=== PATIENT | female | born 1975 | race Caucasian/White ===

== ENCOUNTER 2019-03-28 18:29 | Emergency (ER) | payer MEDICAID, OTHER ==
[~2019-03-28] VITALS: Ht 170.2 cm; Wt 77.3 kg
[~2019-03-28 18:29] MED LIST: DIPH-423 PO; IBUP-1984 PO
[2019-03-28 19:03] LABS: BASOPHILS % (AUTO) 0.2 % (0-1); EOSINOPHILS # (AUTO) 0.1 X10'3 (0-0.9); EOSINOPHILS % (AUTO) 1.1 % (0-6); HEMATOCRIT 40.6 % (35.0-45.0); HEMOGLOBIN 13.9 g/dl (12.0-16.0); LYMPHOCYTES # (AUTO) 1.4 X10'3 (1.1-4.8); LYMPHOCYTES % (AUTO) 11.2 % (21-51); MEAN CORPUSCULAR HEMOGLOBIN 31.8 PG (27.0-31.0); MEAN CORPUSCULAR HGB CONC 34.3 g/dL (33.0-36.5); MEAN CORPUSCULAR VOLUME 92.7 FL (78-98); MEAN PLATELET VOLUME 7.3 FL (7.4-10.4); MONOCYTES # (AUTO) 0.7 X10'3 (0-0.9); MONOCYTES % (AUTO) 5.6 % (2-12); NEUTROPHILS # (AUTO) 10.1 X10'3 (1.8-7.7); NEUTROPHILS % (AUTO) 81.9 % (42-75); PLATELET COUNT 325 X10'3 (140-440); RED BLOOD COUNT 4.38 X10'6 (4.20-5.60); RED CELL DISTRIBUTION WIDTH 13.1 % (11.5-14.5); WHITE BLOOD COUNT 12.3 X10'3 (4.5-11.0)
--- NOTE | 2019-03-28 19:06 | NUR ---
PT AMBULATORY TO RESTROOM TO PROVIDE URINE SAMPLE
[2019-03-28 19:22] LABS: ALANINE AMINOTRANSFERASE 26 U/L (12-78); ALBUMIN 3.2 G/DL (3.4-5.0); ALBUMIN/GLOBULIN RATIO 0.7 (1.1-1.5); ALKALINE PHOSPHATASE 80 IU/L (46-116); ANION GAP 8 (8-16); ASPARTATE AMINO TRANSFERASE 16 U/L (10-37); BILIRUBIN,TOTAL 0.2 MG/DL (0.1-1.0); BLOOD UREA NITROGEN 13 MG/DL (7-18); BUN/CREATININE RATIO 15.3 (6.6-38.0); CALCIUM 8.6 MG/DL (8.5-10.1); CHLORIDE 105 MMOL/L (99-107); CREATININE 0.85 MG/DL (0.40-0.90); GLUCOSE 181 MG/DL (70-104); LIPASE 57 U/L (73-393); POTASSIUM 3.4 MMOL/L (3.5-5.1); SODIUM 138 MMOL/L (135-145); TOTAL PROTEIN 7.5 G/DL (6.4-8.2); eGFR 73 ML/MIN
[2019-03-28 19:23] LABS: URINE HCG NEGATIVE (NEG)
[2019-03-28 19:33] LABS: CLARITY,URINE SLIGHTLY CLOUDY (Clear); COLOR,URINE YELLOW (Yellow); GLUCOSE, URINE NEGATIVE (Neg); KETONES,URINE TRACE mg/dl (Neg); LEUKOCYTE ESTERASE ,URINE NEGATIVE (Neg); NITRITES, URINE NEGATIVE (Neg); OCCULT BLOOD,URINE SMALL (Neg); PROTEIN,URINE NEGATIVE (Neg); UROBILINOGEN,URINE 0.2 E.U/dL (0.2-1.0)
[2019-03-28 19:35] LABS: UA COLLECTION TYPE CLN CATCH MIDSTREAM
[2019-03-28 19:44] LABS: MUCUS STRANDS MANY /LPF (Neg); SQUAMOUS EPITHELIAL CELL,UR MANY /LPF (FEW)
[2019-03-28 19:45] LABS: BACTERIA,URINE NONE SEEN /HPF (Neg); WBC,URINE 0-4 /HPF (0-4)
[2019-03-28] MEDS ORDERED: morphine 4 MG/ML inj SYRINge IV ONE ×2 (20:50→22:50)
--- NOTE | 2019-03-28 21:20 | NUR ---
RELIEVING RN FOR BREAK, PT IS RESTING QUIETLY ON GURNEY, FAMILY AT BEDSIDE, WAITING TO GO CT, PT SAID ABD PAIN IS 2/10.
[2019-03-28] MEDS ORDERED: iohexol 350MG/ML 100ml bottle IV ONE (21:53)
[2019-03-28] MEDS ORDERED: HYDR-3965 PO (21:54)
[2019-03-28] MEDS ORDERED: AMOX-580 PO (21:54)
[2019-03-28 23:24] VITALS: BP 118/79
[2019-03-29] MEDS ORDERED: NO HOME MEDS (19:52)
== END 2019-03-28 23:20 | disposition home or self-care (01) ==
LOC: ER 18:30
DX: K52.9 Noninfective gastroenteritis and colitis, unspecified (principal); Z79.899 Other long term (current) drug therapy
CPT/HCPCS: 36415; 74174; 74176; 80053; 81001; 81025; 83605; 83690; 85025; 96374; 96376; 99284; J2270; Q9967

== ENCOUNTER 2019-03-29 14:01 | Inpatient (IN) | payer MEDICAID, OTHER ==
[~2019-03-29] VITALS: Ht 170.2 cm; Wt 75.6 kg
[~2019-03-29 14:01] MED LIST changes: +AMOX-580 PO; +HYDR-3965 PO
[2019-03-29] MEDS ORDERED: normal saline 1000ML IV soln IVB ONE (15:20)
[2019-03-29] MEDS ORDERED: morphine 4 MG/ML inj SYRINge IV ONE ×2 (15:20→18:35)
[2019-03-29] MEDS ORDERED: ondansetron/PF 4mg/2ml inj IV ONE ×2 (15:20→18:35)
[2019-03-29 17:14] LABS: BASOPHILS % (AUTO) 0.1 % (0-1); EOSINOPHILS % (AUTO) 0.3 % (0-6); HEMATOCRIT 38.7 % (35.0-45.0); HEMOGLOBIN 13.2 g/dl (12.0-16.0); LYMPHOCYTES # (AUTO) 1.1 X10'3 (1.1-4.8); MEAN CORPUSCULAR HEMOGLOBIN 31.6 PG (27.0-31.0); MEAN CORPUSCULAR HGB CONC 34.1 g/dL (33.0-36.5); MEAN CORPUSCULAR VOLUME 92.8 FL (78-98); MEAN PLATELET VOLUME 7.2 FL (7.4-10.4); MONOCYTES # (AUTO) 1.4 X10'3 (0-0.9); MONOCYTES % (AUTO) 7.7 % (2-12); NEUTROPHILS # (AUTO) 15.4 X10'3 (1.8-7.7); NEUTROPHILS % (AUTO) 85.9 % (42-75); PLATELET COUNT 296 X10'3 (140-440); RED BLOOD COUNT 4.17 X10'6 (4.20-5.60); RED CELL DISTRIBUTION WIDTH 12.9 % (11.5-14.5)
[2019-03-29 17:25] LABS: ALANINE AMINOTRANSFERASE 18 U/L (12-78); ALBUMIN 2.8 G/DL (3.4-5.0); ALBUMIN/GLOBULIN RATIO 0.7 (1.1-1.5); ALKALINE PHOSPHATASE 66 IU/L (46-116); ANION GAP 6 (8-16); ASPARTATE AMINO TRANSFERASE 11 U/L (10-37); BILIRUBIN,TOTAL 0.3 MG/DL (0.1-1.0); BLOOD UREA NITROGEN 9 MG/DL (7-18); BUN/CREATININE RATIO 13.6 (6.6-38.0); CHLORIDE 105 MMOL/L (99-107); CREATININE 0.66 MG/DL (0.40-0.90); GLUCOSE 107 MG/DL (70-104); LIPASE < 50 U/L (73-393); SODIUM 139 MMOL/L (135-145); TOTAL CARBON DIOXIDE 28.2 MMOL/L (24-32); TOTAL PROTEIN 6.8 G/DL (6.4-8.2); eGFR > 90 ML/MIN
[2019-03-29] MEDS ORDERED: piperacillin/tazo 3.375gm/50ml 50 ML IV ONE (18:05)
[2019-03-29] MEDS ORDERED: normal saline 1000ml 1,000 ML IV ONE (19:00)
--- NOTE | 2019-03-29 19:18 | NUR ---
PATIENT HAVING PERSISTANT NAUSEA AND VOMITING DESPITE ZOFRAN ADMINISTRATION: PATIENT ASKED FOR A VOMIT BAG: PROVIDED. ASKED DESHAWN GREENFIELD FOR AN ORDER FOR ANOTHER ANTIEMETIC, NO ORDERS RECEIVED
[2019-03-29] MEDS ORDERED: magnesium 2GM in 50ml NS 50 ML IV PRN (19:30)
[2019-03-29] MEDS ORDERED: acetaminophen 325mg tablet PO PRN (19:30)
[2019-03-29] MEDS ORDERED: magnesium 4gm in 100ml NS 100 ML IV PRN (19:30)
[2019-03-29] MEDS ORDERED: potassium Cl 20 mEq SR tablet PO PRN (19:30)
[2019-03-29] MEDS ORDERED: potassium CL 10mEq/100ml bag 100 ML IV PRN ×2 (19:30)
[2019-03-29] MEDS ORDERED: ondansetron/PF 4mg/2ml inj IV PRN (19:30)
[2019-03-29] MEDS ORDERED: magnesium Cl slow-release 64mg tablet PO PRN (19:30)
[2019-03-29 19:38] LABS: CLARITY,URINE SLIGHTLY CLOUDY (Clear); COLOR,URINE AMBER (Yellow); GLUCOSE, URINE NEGATIVE (Neg); KETONES,URINE NEGATIVE (Neg); LEUKOCYTE ESTERASE ,URINE NEGATIVE (Neg); NITRITES, URINE NEGATIVE (Neg); OCCULT BLOOD,URINE NEGATIVE (Neg); PROTEIN,URINE TRACE mg/dl (Neg); UROBILINOGEN,URINE 0.2 E.U/dL (0.2-1.0)
[2019-03-29 19:47] LABS: UA COLLECTION TYPE CLN CATCH MIDSTREAM
[2019-03-29 19:50] LABS: BACTERIA,URINE FEW /HPF (Neg); MUCUS STRANDS MANY /LPF (Neg); RBC,URINE 0-2 /HPF (0-2); SQUAMOUS EPITHELIAL CELL,UR MANY /LPF (FEW); WBC,URINE 0-4 /HPF (0-4)
[2019-03-29 19:51] LABS: AMORPHOUS URATES 1+
[2019-03-29] MEDS ORDERED: NO HOME MEDS (19:52)
--- NOTE | 2019-03-29 20:38 | NUR ---
Report received from Krista HOPPER in ER. Patient is getting admited for nausea, vomiting and abdominal pain.
[2019-03-29 21:00] VITALS: BP 103/58
[2019-03-29] MEDS: normal saline 1000ml 1,000 ML IV SCH (21:01)
[2019-03-30] VITALS: BP 100/58
[2019-03-30] MEDS: morphine 2 MG/ML inj. syringe IV PRN ×6 (00:15→22:01)
[2019-03-30] MEDS ORDERED: proCHLORperazine 10 MG/2 ml inj IV ONE (00:20)
[2019-03-30] MEDS: piperacillin/tazo 4.5gm/100ml 100 ML IV SCH ×3 (00:27→16:03)
[2019-03-30] MEDS: normal saline 1000ml 1,000 ML IV SCH ×2 (04:19→13:42)
[2019-03-30 04:58] LABS: BASOPHILS % (AUTO) 0.2 % (0-1); EOSINOPHILS # (AUTO) 0.2 X10'3 (0-0.9); EOSINOPHILS % (AUTO) 1.2 % (0-6); HEMATOCRIT 35.7 % (35.0-45.0); HEMOGLOBIN 12.2 g/dl (12.0-16.0); LYMPHOCYTES # (AUTO) 1.4 X10'3 (1.1-4.8); LYMPHOCYTES % (AUTO) 8.9 % (21-51); MEAN CORPUSCULAR HEMOGLOBIN 31.9 PG (27.0-31.0); MEAN CORPUSCULAR HGB CONC 34.1 g/dL (33.0-36.5); MEAN CORPUSCULAR VOLUME 93.6 FL (78-98); MEAN PLATELET VOLUME 7.6 FL (7.4-10.4); MONOCYTES # (AUTO) 1.4 X10'3 (0-0.9); MONOCYTES % (AUTO) 9.1 % (2-12); NEUTROPHILS # (AUTO) 12.5 X10'3 (1.8-7.7); NEUTROPHILS % (AUTO) 80.6 % (42-75); PLATELET COUNT 259 X10'3 (140-440); RED BLOOD COUNT 3.81 X10'6 (4.20-5.60); WHITE BLOOD COUNT 15.5 X10'3 (4.5-11.0)
[2019-03-30 05:02] LABS: ALBUMIN 2.5 G/DL (3.4-5.0); ANION GAP 7 (8-16); BLOOD UREA NITROGEN 5 MG/DL (7-18); BUN/CREATININE RATIO 7.9 (6.6-38.0); CALCIUM 8.1 MG/DL (8.5-10.1); CHLORIDE 107 MMOL/L (99-107); CREATININE 0.63 MG/DL (0.40-0.90); GLUCOSE 110 MG/DL (70-104); MAGNESIUM 1.9 MG/DL (1.5-2.4); POTASSIUM 3.4 MMOL/L (3.5-5.1); SODIUM 140 MMOL/L (135-145); TOTAL CARBON DIOXIDE 25.9 MMOL/L (24-32); eGFR > 90 ML/MIN
--- NOTE | 2019-03-30 06:28 | NUR ---
Patient in room [facility]. I have received report from WARD Cardoza and had the opportunity to ask questions and assume patient care.
--- NOTE | 2019-03-30 06:30 | NUR ---
Problems reprioritized. Patient report given, questions answered & plan of care reviewed with Salena HOPPER.Patient has been having nausea and doctor was notified. Antinausea meds given and patient complaing abdominal pain with diarrhea. Pain meds given per doctors order.
[2019-03-30] MEDS: lactobacillus rhamnosus 10,000 MMU CELLS/CAPSULE PO SCH (07:02)
[2019-03-30] MEDS: potassium Cl 20 mEq SR tablet PO PRN ×3 (07:03→16:03)
[2019-03-30 07:21] VITALS: BP 114/70
[2019-03-30] MEDS: K and/or MAG REPLACEMENT MC SCH (08:00)
[2019-03-30] MEDS ORDERED: ketorolac tromethamine 15mg/ml inj. IV ONE (10:25)
[2019-03-30] MEDS ORDERED: proCHLORperazine 10 MG/2 ml inj IV PRN (10:25)
[2019-03-30 11:24] VITALS: BP 97/52
[2019-03-30 14:17] LABS: C DIFF ANTIGEN NEGATIVE (NEGATIVE); C DIFF SPECIMEN=DIARRHEA? ACCEPTABLE; C DIFFICILE TOXINS A&B NEGATIVE (Neg)
[2019-03-30 18:00] VITALS: BP 100/54
--- NOTE | 2019-03-30 18:40 | NUR ---
Problems reprioritized. Patient report given, questions answered & plan of care reviewed with WARD Cardoza.
--- NOTE | 2019-03-30 18:53 | NUR ---
Patient in room [facility]. I have received report from Salena HOPPER and had the opportunity to ask questions and assume patient care. patient has family members in the room.
[2019-03-31] VITALS: BP 94/54
[2019-03-31] MEDS: piperacillin/tazo 4.5gm/100ml 100 ML IV SCH ×3 (00:32→16:38)
[2019-03-31] MEDS: normal saline 1000ml 1,000 ML IV SCH ×3 (00:32→21:29)
[2019-03-31] MEDS: morphine 2 MG/ML inj. syringe IV PRN ×4 (02:01→16:38)
[2019-03-31 04:30] LABS: ALBUMIN 2.2 G/DL (3.4-5.0); ANION GAP 4 (8-16); BLOOD UREA NITROGEN 4 MG/DL (7-18); CALCIUM 7.9 MG/DL (8.5-10.1); CHLORIDE 109 MMOL/L (99-107); CREATININE 0.67 MG/DL (0.40-0.90); GLUCOSE 98 MG/DL (70-104); MAGNESIUM 1.9 MG/DL (1.5-2.4); POTASSIUM 3.6 MMOL/L (3.5-5.1); SODIUM 140 MMOL/L (135-145); TOTAL CARBON DIOXIDE 26.9 MMOL/L (24-32); eGFR > 90 ML/MIN
[2019-03-31 04:38] LABS: BASOPHILS % (AUTO) 0.3 % (0-1); EOSINOPHILS # (AUTO) 0.2 X10'3 (0-0.9); EOSINOPHILS % (AUTO) 1.7 % (0-6); HEMATOCRIT 32.4 % (35.0-45.0); HEMOGLOBIN 11.1 g/dl (12.0-16.0); LYMPHOCYTES # (AUTO) 2.2 X10'3 (1.1-4.8); LYMPHOCYTES % (AUTO) 16.6 % (21-51); MEAN CORPUSCULAR HGB CONC 34.2 g/dL (33.0-36.5); MEAN CORPUSCULAR VOLUME 93.6 FL (78-98); MEAN PLATELET VOLUME 7.2 FL (7.4-10.4); MONOCYTES % (AUTO) 7.5 % (2-12); NEUTROPHILS % (AUTO) 73.9 % (42-75); PLATELET COUNT 261 X10'3 (140-440); RED BLOOD COUNT 3.47 X10'6 (4.20-5.60); WHITE BLOOD COUNT 13.6 X10'3 (4.5-11.0)
--- NOTE | 2019-03-31 06:24 | NUR ---
Patient in room [facility]. I have received report from WARD Cardoza and had the opportunity to ask questions and assume patient care.
--- NOTE | 2019-03-31 06:28 | NUR ---
Problems reprioritized. Patient report given, questions answered & plan of care reviewed with Camille HOPPER.
[2019-03-31 07:00] VITALS: BP 103/62
[2019-03-31] MEDS: lactobacillus rhamnosus 10,000 MMU CELLS/CAPSULE PO SCH (07:18)
[2019-03-31] MEDS: K and/or MAG REPLACEMENT MC SCH (08:00)
[2019-03-31 11:00] VITALS: BP 104/65
[2019-03-31] MEDS: HYDROcodone/acetaminophen 5mg/325mg tablet PO PRN ×2 (13:11→19:15)
--- NOTE | 2019-03-31 18:30 | NUR ---
Problems reprioritized. Patient report given, questions answered & plan of care reviewed with WARD Eastman.
--- NOTE | 2019-03-31 18:48 | NUR ---
Patient in room [facility]. I have received report from WARD Bolaños and had the opportunity to ask questions and assume patient care.
[2019-03-31 21:41] VITALS: BP 99/60
[2019-04-01] MEDS: piperacillin/tazo 4.5gm/100ml 100 ML IV SCH ×4 (00:03→23:49)
[2019-04-01] MEDS: morphine 2 MG/ML inj. syringe IV PRN (00:04)
--- NOTE | 2019-04-01 00:26 | NUR ---
vss were taken at 1800 not in the 2100 hour Addendum: 04/01/19 at 0027 by Jaren Donahue RN Amended: Links added.
[2019-04-01 00:27] VITALS: BP 100/58
[2019-04-01] MEDS: HYDROcodone/acetaminophen 5mg/325mg tablet PO PRN ×3 (04:37→19:19)
[2019-04-01 06:14] LABS: BASOPHILS % (AUTO) 0.5 % (0-1); EOSINOPHILS # (AUTO) 0.3 X10'3 (0-0.9); EOSINOPHILS % (AUTO) 2.8 % (0-6); HEMATOCRIT 31.2 % (35.0-45.0); HEMOGLOBIN 10.9 g/dl (12.0-16.0); LYMPHOCYTES # (AUTO) 2.7 X10'3 (1.1-4.8); LYMPHOCYTES % (AUTO) 28.4 % (21-51); MEAN CORPUSCULAR HGB CONC 34.8 g/dL (33.0-36.5); MEAN PLATELET VOLUME 7.5 FL (7.4-10.4); MONOCYTES # (AUTO) 0.8 X10'3 (0-0.9); MONOCYTES % (AUTO) 8.6 % (2-12); NEUTROPHILS # (AUTO) 5.8 X10'3 (1.8-7.7); NEUTROPHILS % (AUTO) 59.7 % (42-75); PLATELET COUNT 273 X10'3 (140-440); RED BLOOD COUNT 3.39 X10'6 (4.20-5.60); RED CELL DISTRIBUTION WIDTH 12.9 % (11.5-14.5); WHITE BLOOD COUNT 9.7 X10'3 (4.5-11.0)
--- NOTE | 2019-04-01 06:20 | NUR ---
Problems reprioritized. Patient report given, questions answered & plan of care reviewed with WARD Morejon.
[2019-04-01 06:27] LABS: ALBUMIN 2.2 G/DL (3.4-5.0); ANION GAP 7 (8-16); BLOOD UREA NITROGEN 4 MG/DL (7-18); BUN/CREATININE RATIO 6.3 (6.6-38.0); CALCIUM 8.3 MG/DL (8.5-10.1); CHLORIDE 109 MMOL/L (99-107); CREATININE 0.64 MG/DL (0.40-0.90); GLUCOSE 86 MG/DL (70-104); MAGNESIUM 1.8 MG/DL (1.5-2.4); POTASSIUM 3.5 MMOL/L (3.5-5.1); SODIUM 142 MMOL/L (135-145); TOTAL CARBON DIOXIDE 26.2 MMOL/L (24-32); eGFR > 90 ML/MIN
--- NOTE | 2019-04-01 06:30 | NUR ---
Patient in room [facility]. I have received report from Jaren HOPPER and had the opportunity to ask questions and assume patient care.
[2019-04-01 07:00] VITALS: BP 118/65
[2019-04-01] MEDS: lactobacillus rhamnosus 10,000 MMU CELLS/CAPSULE PO SCH (07:51)
[2019-04-01] MEDS: normal saline 1000ml 1,000 ML IV SCH ×2 (07:56→17:28)
[2019-04-01] MEDS: K and/or MAG REPLACEMENT MC SCH (08:00)
[2019-04-01 11:00] VITALS: BP 108/67
--- NOTE | 2019-04-01 18:25 | NUR ---
Patient in room [facility]. I have received report from WARD Morejon and had the opportunity to ask questions and assume patient care.Patient informed me that she just had noticed that she has a rash on her upper chest. It is asymptomatic, no itching, burning, etc. I will keep an eye on it during my shift. Patient is not on any new medications toda. Addendum: 04/01/19 at 1829 by Jaren Donahue RN today
--- NOTE | 2019-04-01 18:45 | NUR ---
Problems reprioritized. Patient report given, questions answered & plan of care reviewed with Jaren HOPPER.
[2019-04-01 23:14] VITALS: BP 109/64
[2019-04-02] VITALS: BP 108/69
[2019-04-02] MEDS: normal saline 1000ml 1,000 ML IV SCH ×2 (03:28→06:38)
[2019-04-02] MEDS: HYDROcodone/acetaminophen 5mg/325mg tablet PO PRN (04:13)
[2019-04-02 05:02] LABS: BASOPHILS % (AUTO) 0.4 % (0-1); EOSINOPHILS # (AUTO) 0.2 X10'3 (0-0.9); EOSINOPHILS % (AUTO) 2.5 % (0-6); HEMATOCRIT 32.1 % (35.0-45.0); LYMPHOCYTES # (AUTO) 2.7 X10'3 (1.1-4.8); MEAN CORPUSCULAR HEMOGLOBIN 31.7 PG (27.0-31.0); MEAN CORPUSCULAR HGB CONC 34.3 g/dL (33.0-36.5); MEAN CORPUSCULAR VOLUME 92.3 FL (78-98); MEAN PLATELET VOLUME 7.4 FL (7.4-10.4); MONOCYTES # (AUTO) 0.8 X10'3 (0-0.9); MONOCYTES % (AUTO) 9.5 % (2-12); NEUTROPHILS # (AUTO) 5.1 X10'3 (1.8-7.7); NEUTROPHILS % (AUTO) 57.6 % (42-75); PLATELET COUNT 305 X10'3 (140-440); RED BLOOD COUNT 3.48 X10'6 (4.20-5.60); RED CELL DISTRIBUTION WIDTH 12.5 % (11.5-14.5); WHITE BLOOD COUNT 8.9 X10'3 (4.5-11.0)
[2019-04-02 05:21] LABS: ALBUMIN 2.3 G/DL (3.4-5.0); ANION GAP 8 (8-16); BLOOD UREA NITROGEN 11 MG/DL (7-18); BUN/CREATININE RATIO 15.7 (6.6-38.0); CALCIUM 8.5 MG/DL (8.5-10.1); CHLORIDE 108 MMOL/L (99-107); GLUCOSE 98 MG/DL (70-104); POTASSIUM 3.6 MMOL/L (3.5-5.1); SODIUM 142 MMOL/L (135-145); TOTAL CARBON DIOXIDE 26.4 MMOL/L (24-32); eGFR > 90 ML/MIN
--- NOTE | 2019-04-02 06:30 | NUR ---
Patient in room [facility]. I have received report from Jaren HOPPER and had the opportunity to ask questions and assume patient care.
--- NOTE | 2019-04-02 06:33 | NUR ---
Problems reprioritized. Patient report given, questions answered & plan of care reviewed with WARD Morejon.
[2019-04-02 07:31] VITALS: BP 104/62
[2019-04-02] MEDS: K and/or MAG REPLACEMENT MC SCH (08:00)
[2019-04-02] MEDS: lactobacillus rhamnosus 10,000 MMU CELLS/CAPSULE PO SCH (08:40)
[2019-04-02] MEDS: piperacillin/tazo 4.5gm/100ml 100 ML IV SCH (08:40)
[2019-04-02 11:16] VITALS: BP 105/63
[2019-04-02] MEDS ORDERED: METR-159 PO (11:58)
[2019-04-02] MEDS ORDERED: CIPR-230 PO (11:58)
--- NOTE | 2019-04-02 12:40 | NUR ---
Patient discharge with family in the room, Patient was educated on her new medication regime and timing of new medications. Patient expressed verbal understanding of discharge instruction at this time. Patient IV taken out and minimal bleeding was noted, canula is whole and intact at DC, patient taken down to lobby via wheel chair and trasported home in private vehicle. Patient medications were e-scripted to patients pharmacy at this time.
[2019-04-02] MEDS ORDERED: piperacillin/tazo 3.375gm/50ml 50 ML IV SCH (16:00)
== END 2019-04-02 12:35 | disposition home or self-care (01) | DRG 392 ==
LOC: ER 14:02 → ED HOLD 19:28 → SUR 3N 20:50
PROVIDERS: ADMIT Internal Medicine; ATTEND Family Medicine
DX: K52.9 Noninfective gastroenteritis and colitis, unspecified (principal); Z98.82 Breast implant status; F17.210 Nicotine dependence, cigarettes, uncomplicated; E87.6 Hypokalemia
CPT/HCPCS: 36415; 71045; 80048; 80053; 81001; 83605; 83690; 83735; 85025; 87040; 87045; 87046; 87081; 87324; 87449; 89055; 93005; 96365; 96375; 96376; 99285; G0378; J0780; J1885; J2270; J2405; J2543; J7030

== ENCOUNTER 2019-08-29 10:32 | Inpatient (IN) | payer OTHER ==
[~2019-08-29] VITALS: Ht 170.2 cm; Wt 78.8 kg
[2019-08-29 11:05] LABS: BASOPHILS % (AUTO) 0.2 % (0-1); EOSINOPHILS # (AUTO) 0.1 X10'3 (0-0.9); EOSINOPHILS % (AUTO) 0.8 % (0-6); HEMATOCRIT 47.2 % (35.0-45.0); HEMOGLOBIN 15.8 g/dl (12.0-16.0); LYMPHOCYTES # (AUTO) 0.8 X10'3 (1.1-4.8); LYMPHOCYTES % (AUTO) 4.8 % (21-51); MEAN CORPUSCULAR HEMOGLOBIN 31.2 PG (27.0-31.0); MEAN CORPUSCULAR HGB CONC 33.5 g/dL (33.0-36.5); MEAN PLATELET VOLUME 7.4 FL (7.4-10.4); MONOCYTES # (AUTO) 0.5 X10'3 (0-0.9); MONOCYTES % (AUTO) 2.8 % (2-12); NEUTROPHILS # (AUTO) 14.8 X10'3 (1.8-7.7); NEUTROPHILS % (AUTO) 91.4 % (42-75); PLATELET COUNT 368 X10'3 (140-440); RED BLOOD COUNT 5.07 X10'6 (4.20-5.60); RED CELL DISTRIBUTION WIDTH 13.4 % (11.5-14.5); WHITE BLOOD COUNT 16.1 X10'3 (4.5-11.0)
[2019-08-29 11:11] LABS: CLARITY,URINE CLEAR (Clear); COLOR,URINE YELLOW (Yellow); GLUCOSE, URINE NEGATIVE (Neg); KETONES,URINE NEGATIVE (Neg); LEUKOCYTE ESTERASE ,URINE NEGATIVE (Neg); NITRITES, URINE NEGATIVE (Neg); OCCULT BLOOD,URINE MODERATE (Neg); PH,URINE 5.5 (4.8-8.0); PROTEIN,URINE TRACE mg/dl (Neg); UROBILINOGEN,URINE 0.2 E.U/dL (0.2-1.0)
[2019-08-29 11:13] LABS: URINE HCG NEGATIVE (NEG)
[2019-08-29 11:15] LABS: UA COLLECTION TYPE CLN CATCH MIDSTREAM
[2019-08-29 11:16] LABS: MUCUS STRANDS MANY /LPF (Neg); SQUAMOUS EPITHELIAL CELL,UR MANY /LPF (FEW)
[2019-08-29 11:17] LABS: BACTERIA,URINE 2+ /HPF (Neg); WBC,URINE 0-4 /HPF (0-4)
[2019-08-29 11:19] LABS: ALANINE AMINOTRANSFERASE 29 U/L (12-78); ALBUMIN 3.8 G/DL (3.4-5.0); ALBUMIN/GLOBULIN RATIO 0.9 (1.1-1.5); ALKALINE PHOSPHATASE 77 IU/L (46-116); AMYLASE 60 U/L (25-115); ANION GAP 10 (8-16); ASPARTATE AMINO TRANSFERASE 12 U/L (10-37); BILIRUBIN,TOTAL 0.4 MG/DL (0.1-1.0); BLOOD UREA NITROGEN 16 MG/DL (7-18); CALCIUM 8.9 MG/DL (8.5-10.1); CHLORIDE 105 MMOL/L (99-107); CREATININE 0.94 MG/DL (0.40-0.90); GLUCOSE 116 MG/DL (70-104); LIPASE 97 U/L (73-393); POTASSIUM 4.5 MMOL/L (3.5-5.1); SODIUM 140 MMOL/L (135-145); TOTAL CARBON DIOXIDE 24.9 MMOL/L (24-32); TOTAL PROTEIN 7.9 G/DL (6.4-8.2); eGFR 65 ML/MIN
[2019-08-29] MEDS ORDERED: morphine 4 MG/ML inj SYRINge IV ONE (11:40)
[2019-08-29] MEDS ORDERED: ondansetron/PF 4mg/2ml inj IV ONE (11:40)
[2019-08-29] MEDS ORDERED: pantoprazole 40 MG vial IV ONE (11:40)
[2019-08-29] MEDS ORDERED: normal saline 1000ML IV soln IVB ONE (12:00)
[2019-08-29] MEDS ORDERED: metroNIDAZOLE-Flagyl 500mg/NS 100 ML IV STA (12:47)
[2019-08-29] MEDS ORDERED: morphine 2 MG/ML inj. syringe IV ONE (12:50)
[2019-08-29] MEDS ORDERED: HYDR-4383 PO (15:05)
[2019-08-29] MEDS ORDERED: AMOX-422 PO (15:05)
[2019-08-29] MEDS ORDERED: VARE0.5T PO (15:05)
[2019-08-29] MEDS ORDERED: NO HOME MEDS (16:25)
[2019-08-29] MEDS ORDERED: HYDROcodone/acetaminophen 10/325mg tab PO PRN (16:30)
[2019-08-29] MEDS ORDERED: morphine 2 MG/ML inj. syringe IV PRN (16:30)
[2019-08-29] MEDS ORDERED: HYDROcodone/acetaminophen 5mg/325mg tablet PO PRN (16:30)
[2019-08-29] MEDS ORDERED: magnesium hydroxide 30ml (MOM) UD suspension PO PRN (16:30)
[2019-08-29] MEDS ORDERED: ondansetron/PF 4mg/2ml inj IV PRN (16:30)
[2019-08-29] MEDS ORDERED: acetaminophen 325mg tablet PO PRN ×2 (16:30)
[2019-08-29] MEDS ORDERED: mag hydrox/Alum hydrox/simeth 30ml oral suspension PO PRN (16:30)
[2019-08-29] MEDS ORDERED: iohexol 350MG/ML 100ml bottle IV ONE (16:47)
[2019-08-29] MEDS: normal saline 1000ml 1,000 ML IV SCH (17:08)
[2019-08-29] MEDS: morphine 2 MG/ML inj. syringe IV PRN ×2 (18:49→22:56)
--- NOTE | 2019-08-29 18:53 | NUR ---
IPA 3016b, pt with bp 105/63, st at 106. reports pain to mid righ abd of 5 out of 10. Just given msiv 2 mg and zofran, both iv.
[2019-08-29 19:15] VITALS: BP 98/63
[2019-08-29 22:00] VITALS: BP 98/56
[2019-08-29] MEDS ORDERED: CefTRIAXone/D5W-Rocephin 1gm 50 ML IV SCH (22:56)
--- NOTE | 2019-08-29 22:58 | NUR ---
Spoke to Dr. Lowery due to patient having elevated temp at 100.3, continued hypotension 90s/50s, and tachycardia. Patient had a UA that was (+) for bacteria and had only received a one time dose of Flagyl in the ER. MD ordered to start patient on Rocephin 1gm IV daily with first dose to be given tonight
[2019-08-30 02:00] VITALS: BP 90/51
[2019-08-30] MEDS: normal saline 1000ml 1,000 ML IV SCH ×2 (02:30→12:30)
[2019-08-30] MEDS: morphine 2 MG/ML inj. syringe IV PRN ×2 (04:49→10:12)
[2019-08-30 05:29] LABS: BASOPHILS % (AUTO) 0.1 % (0-1); EOSINOPHILS % (AUTO) 0.2 % (0-6); HEMATOCRIT 35.9 % (35.0-45.0); HEMOGLOBIN 12.2 g/dl (12.0-16.0); LYMPHOCYTES % (AUTO) 14.1 % (21-51); MEAN CORPUSCULAR HEMOGLOBIN 31.5 PG (27.0-31.0); MEAN CORPUSCULAR HGB CONC 33.9 g/dL (33.0-36.5); MEAN CORPUSCULAR VOLUME 93.1 FL (78-98); MEAN PLATELET VOLUME 7.5 FL (7.4-10.4); MONOCYTES # (AUTO) 0.3 X10'3 (0-0.9); MONOCYTES % (AUTO) 4.5 % (2-12); NEUTROPHILS # (AUTO) 5.5 X10'3 (1.8-7.7); NEUTROPHILS % (AUTO) 81.1 % (42-75); PLATELET COUNT 236 X10'3 (140-440); RED BLOOD COUNT 3.86 X10'6 (4.20-5.60); RED CELL DISTRIBUTION WIDTH 13.3 % (11.5-14.5); WHITE BLOOD COUNT 6.8 X10'3 (4.5-11.0)
[2019-08-30 05:44] LABS: ALBUMIN 2.5 G/DL (3.4-5.0); ANION GAP 7 (8-16); BLOOD UREA NITROGEN 10 MG/DL (7-18); BUN/CREATININE RATIO 12.3 (6.6-38.0); CALCIUM 7.6 MG/DL (8.5-10.1); CHLORIDE 106 MMOL/L (99-107); CREATININE 0.81 MG/DL (0.40-0.90); GLUCOSE 95 MG/DL (70-104); POTASSIUM 3.3 MMOL/L (3.5-5.1); SODIUM 139 MMOL/L (135-145); TOTAL CARBON DIOXIDE 26.3 MMOL/L (24-32); eGFR 78 ML/MIN
[2019-08-30 06:00] VITALS: BP 93/52
--- NOTE | 2019-08-30 06:30 | NUR ---
Problems reprioritized. Patient report given, questions answered & plan of care reviewed with Elli HOPPER.
--- NOTE | 2019-08-30 06:31 | NUR ---
Patient in room [facility] 3018. I have received report from Cherry HOPPER and had the opportunity to ask questions and assume patient care.
[2019-08-30 08:00] VITALS: BP_SYST 101; BP_SYST 91; BP_SYST 97; BP_DIAS 52; BP_DIAS 62; BP_DIAS 63
--- NOTE | 2019-08-30 08:15 | NUR ---
PAGER ID: [phone] MESSAGE: Rachel cintia [phone]. RE Viv Lieberman 2018. Pt K+ is 3.3, can I put in replacement orders for her? Thanks!
[2019-08-30] MEDS ORDERED: potassium Cl 20 mEq SR tablet PO PRN ×2 (09:05)
[2019-08-30] MEDS ORDERED: potassium CL 10mEq/100ml bag 100 ML IV PRN ×2 (09:05)
[2019-08-30 11:00] VITALS: BP 101/52
[2019-08-30 15:00] VITALS: BP 93/58
[2019-08-30] MEDS ORDERED: HYDR-4383 PO (16:55)
--- NOTE | 2019-08-30 17:10 | NUR ---
PAGER ID: [phone] MESSAGE: [id number] Viv Lieberman Will need either e-script for [place] sent directly to pharmacy of preference or a hand written order to give patient. Elli [phone]
[2019-08-30] MEDS ORDERED: VARE0.5T PO (17:32)
--- NOTE | 2019-08-30 17:53 | NUR ---
Per MD orders, patient stable for discharge home. New prescriptions called in to pharmacy of preference and written script provided for controlled meds. Discharge packet reviewed and all questions answered to patient satisfaction. Tele monitoring discontinued. PIV discontinued; cannula intact. All belongings sent with patient. Transferred to private vehicle via wheelchair accompanied by aide.
[2019-08-30] MEDS ORDERED: K and/or MAG REPLACEMENT MC SCH (20:00)
== END 2019-08-30 17:52 | disposition home or self-care (01) | DRG 316 ==
LOC: ER 10:33 → ED HOLD 16:30 → PCU 3S 19:10
PROVIDERS: ADMIT Internal Medicine; ATTEND Internal Medicine
PROC: B32T1ZZ Computerized Tomography (CT Scan) of Left Pulmonary Artery using Low Osmolar Contrast (ICD-10-PCS; principal; 2019-08-29)
PROC: B3201ZZ Computerized Tomography (CT Scan) of Thoracic Aorta using Low Osmolar Contrast (ICD-10-PCS; 2019-08-29)
PROC: B32S1ZZ Computerized Tomography (CT Scan) of Right Pulmonary Artery using Low Osmolar Contrast (ICD-10-PCS; 2019-08-29)
DX: I95.9 Hypotension, unspecified (principal); F17.210 Nicotine dependence, cigarettes, uncomplicated; E87.6 Hypokalemia; K44.9 Diaphragmatic hernia without obstruction or gangrene; D72.829 Elevated white blood cell count, unspecified; R00.0 Tachycardia, unspecified; Z98.51 Tubal ligation status
CPT/HCPCS: 36415; 71275; 74176; 76700; 80048; 80053; 81001; 81025; 82150; 83605; 83690; 83880; 84145; 84484; 85025; 87081; 93005; 96361; 96365; 96375; 96376; 99285; C9113; G0378; J0696; J2270; J2405; J3490; J7030; Q9967